=== PATIENT | female | born 1990 | race Caucasian/White ===

== ENCOUNTER 2016-07-28 13:21 | Emergency (ER) | payer OTHER ==
[2016-07-28 13:30] VITALS: BP 133/84
== END 2016-07-28 14:45 | disposition home or self-care (01) ==
LOC: ED 13:21
DX: S63.501A Unspecified sprain of right wrist, initial encounter (principal); W17.89XA Other fall from one level to another, initial encounter; Y93.89 Activity, other specified; Y99.8 Other external cause status; Y92.89 Other specified places as the place of occurrence of the external cause
CPT/HCPCS: Q0092

== ENCOUNTER 2017-01-17 17:33 | Emergency (ER) | payer OTHER ==
[~2017-01-17] VITALS: Ht 160 cm; Wt 84.8 kg
[2017-01-17 22:27] VITALS: BP 133/46
== END 2017-01-17 22:27 | disposition home or self-care (01) ==
LOC: ED 17:33
DX: S92.511A Displaced fracture of proximal phalanx of right lesser toe(s), initial encounter for closed fracture (principal); S01.511A Laceration without foreign body of lip, initial encounter; S02.5XXA Fracture of tooth (traumatic), initial encounter for closed fracture; Y04.8XXA Assault by other bodily force, initial encounter; Y93.89 Activity, other specified; Y92.89 Other specified places as the place of occurrence of the external cause; Y99.8 Other external cause status
CPT/HCPCS: 90715; J0696; J2001; Q0092

== ENCOUNTER 2018-11-20 22:08 | Emergency (ER) | payer MEDICAID ==
[~2018-11-20] VITALS: Ht 165.1 cm; Wt 88.1 kg
[2018-11-20 22:10] VITALS: Ht 165.1 cm; Wt 88.1 kg
[2018-11-20 22:50] VITALS: BP 117/68
== END 2018-11-20 22:50 | disposition home or self-care (01) ==
LOC: ED 22:08
DX: T78.1XXA Other adverse food reactions, not elsewhere classified, initial encounter (principal); L50.9 Urticaria, unspecified; X58.XXXA Exposure to other specified factors, initial encounter
CPT/HCPCS: J1100; Q0163

== ENCOUNTER 2019-04-28 14:13 | Emergency (ER) | payer SELFPAY ==
[~2019-04-28] VITALS: Ht 165.1 cm; Wt 86.2 kg
[2019-04-28 14:18] VITALS: Ht 165.1 cm; Wt 86.2 kg
[2019-04-28 15:55] VITALS: BP 115/67
== END 2019-04-28 15:55 | disposition home or self-care (01) ==
LOC: ED 14:13
DX: B35.0 Tinea barbae and tinea capitis (principal)